=== PATIENT | male | born 2000 | race Two or more races ===

== ENCOUNTER 2020-02-15 16:42 | Emergency (ER) | payer OTHER ==
[~2020-02-15] VITALS: Ht 185.4 cm; Wt 71.2 kg
[2020-02-15 16:44] VITALS: BP 120/69
--- NOTE | 2020-02-15 16:48 | NUR ---
4 SUTURES REMOVED BY PROVIDER IN TRIAGE
[2020-02-15] MEDS ORDERED: NEOSPORIN OINT. PKT 1 PACKET ONE (16:51)
== END 2020-02-15 16:54 | disposition home or self-care (01) ==
LOC: ED 16:50
DX: S01.412D Laceration without foreign body of left cheek and temporomandibular area, subsequent encounter (principal); Z48.02 Encounter for removal of sutures; X58.XXXD Exposure to other specified factors, subsequent encounter
CPT/HCPCS: 99282